=== PATIENT | male | born 2000 | race Caucasian/White ===

== ENCOUNTER 2022-07-30 11:17 | Emergency (ER) | payer OTHER, SELFPAY ==
[2022-07-30 11:26] VITALS: BP 145/86; PULSE 98; RESP 20; TEMP 36.9; O2SAT 98
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
== END 2022-07-30 12:30 | disposition home or self-care (01) ==
PROVIDERS: Emergency Provider Registered Nurse; PCP Nurse Practitioner Family
DX: H66.91 Otitis media, unspecified, right ear (principal); R05.9 Cough, unspecified; F17.290 Nicotine dependence, other tobacco product, uncomplicated
CPT/HCPCS: 99213; G0463

== ENCOUNTER 2024-01-03 09:07 | Emergency (ER) | payer OTHER, SELFPAY ==
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
== END 2024-01-03 09:40 | disposition home or self-care (01) ==
PROVIDERS: Emergency Provider Registered Nurse; PCP Nurse Practitioner Family
DX: J32.9 Chronic sinusitis, unspecified (principal); R05.1 Acute cough; J45.909 Unspecified asthma, uncomplicated; K21.9 Gastro-esophageal reflux disease without esophagitis; F17.290 Nicotine dependence, other tobacco product, uncomplicated
CPT/HCPCS: 99213; G0463

== ENCOUNTER 2024-01-21 17:45 | Emergency (ER) | payer OTHER, SELFPAY ==
[2024-01-21 17:50] VITALS: BP 129/76; PULSE 99; RESP 18; TEMP 36.8; O2SAT 97
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
[2024-01-21 18:26] LABS: EDINFLUASCREEN Negative (Negative); EDINFLUBSCREEN Negative (Negative)
== END 2024-01-21 18:24 | disposition home or self-care (01) ==
PROVIDERS: Emergency Provider Nurse Practitioner Family; PCP Nurse Practitioner Family
DX: J40 Bronchitis, not specified as acute or chronic (principal); H66.91 Otitis media, unspecified, right ear; Z20.822 Contact with and (suspected) exposure to COVID-19; J45.909 Unspecified asthma, uncomplicated; K21.9 Gastro-esophageal reflux disease without esophagitis; F17.290 Nicotine dependence, other tobacco product, uncomplicated
CPT/HCPCS: 87426; 87804; 99213; G0463